=== PATIENT | female | born 1960 | race Caucasian/White ===

== ENCOUNTER → 2018-01-09 | Outpatient (CLI) | payer BC ==
[~2018-01-09] MED LIST: ASCO-182 PO; ASPI-1471 PO; HYD2 PO; IBUP-1671 PO; LOR7.5/325 PO; MED FOR REFLUX; MULT-1335 PO; OMEG500C5 PO; OMEG500C7 PO; OMEP-125 PO; OMEP40CA48 PO; PAN40 PO; PHEN-460 PO; PROM12.546 PO; RANI-324 PO; VITAMINS
--- NOTE | 2018-01-10 10:26 | RADIOLOGY IMAGING REPORT ---
FACILITY: PATIENT NAME: FAVIAN LEWIS : [id number] MR: [id number] V: [id number] EXAM DATE: [id number] ORDERING PHYSICIAN: AGUSTIN MCMAHON TECHNOLOGIST: Na Fried PROCEDURE:BILATERAL DIGITAL SCREENING MAMMOGRAM WITH CAD ASSISTED INTERPRETATION & 3D TOMOSYNTHESIS COMPARISON:Prior mammograms 10/12/16, 09/06/15, 02/19/14, 12/26/12 INDICATIONS:screening FINDINGS: Moderately heterogeneous fibroglandular tissue is seen throughout the breasts. The parenchymal pattern has remained stable allowing for difference in mammographic technique & patient positioning. There is no evidence of malignant appearing mass, malignant appearing calcifications or other secondary sign of malignancy in either breast. DIAGNOSTIC CATEGORY 2--BENIGN FINDING. RECOMMENDATIONS: ROUTINE MAMMOGRAM AND CLINICAL EVALUATION. IMPRESSION: BIRADS 2: Benign finding No significant abnormality is seen Dictated by: Nasra Tong M.D. on 01/09/2018 at 15:04 Transcribed by: JENA on 01/09/2018 at 15:54 Approved by: Nasra Tong M.D. on 01/10/2018 at 10:25 [facility]
== END ==
LOC: MAMO 02:23
PROVIDERS: ATTEND Obstetrics & Gynecology
DX: Z12.31 Encounter for screening mammogram for malignant neoplasm of breast (principal)
CPT/HCPCS: 77063; 77067

== ENCOUNTER → 2018-03-14 | Outpatient (CLI) | payer BC ==
[~2018-03-14] MED LIST changes: -RANI-324 PO; +RANI-366 PO
--- NOTE | 2018-03-14 10:57 | RADIOLOGY IMAGING REPORT ---
FACILITY: [facility] [place] PATIENT NAME: Deb Jane : 1960 MR: [id number] V: [id number] EXAM DATE: ORDERING PHYSICIAN: CELY DIEGO TECHNOLOGIST: Location: Patient: Deb Jane : 1960 Visit/Account:[id number] Date of Sevice: 03/14/2018 Exam type: KUB SINGLE VIEW ABDOMEN History: Pre-MRI screening, swallowed camera for endoscopy two months ago. Patient states she never passed through her bowel Comparison: None. Findings: The bowel gas pattern is nonspecific other than a moderate amount of fecal material in the right-side d the colon. No radiopaque foreign bodies are identified in the abdomen or pelvis. There are mild s pondylotic changes of the lumbar spine and moderate degenerative changes of the hip joints IMPRESSION: 1. No radiopaque foreign bodies identified in the abdomen or pelvis Report Dictated By: aNsra Tong MD at 03/14/2018 10:53 AM Report E-Signed By: Nasra Tong MD at 03/14/2018 10:54 AM WSN:[id number]
--- NOTE | 2018-03-14 17:19 | RADIOLOGY IMAGING REPORT ---
FACILITY: [facility] PATIENT NAME: Deb Jane : 1960 MR: [id number] V: [id number] EXAM DATE: ORDERING PHYSICIAN: CELY DIEGO TECHNOLOGIST: Location: [facility] Patient: Deb Jane : 1960 Visit/Account:[id number] Date of Sevice: 03/14/2018 MRI of the lumbar spine Indication: Low back pain and leg weakness. Comparison: None available. Technique: Sagittal T2-weighted, sagittal STIR, sagittal T1-weighted, and axial T2-weighted images of the lumbar spine were obtained. Findings: The conus terminates normally at level of L1 There is no abnormal marrow signal. There is no abnormal signal within the visualized spinal cord, The vertebral body heights are well maintained. There is severe disc space narrowing at L5-S1. There is mild disc desiccation L2-L3, L3-L4, and L4-5. Axial images extend L1-S1 Sagittal images of T11-12 and T12-L1 are unremarkable without significant central stenosis or neural foraminal narrowing. L1-L2: No significant central stenosis or neural foraminal narrowing. L2-L3: Minimal diffuse disc bulge with overall minimal central stenosis. There is mild foraminal gurinder rowing bilaterally. L3-L4: Mild diffuse disc bulge and facet arthropathy overall mild central stenosis. There is minima l foraminal narrowing bilaterally. L4-L5: Mild diffuse disc bulge and severe facet arthropathy results in overall mild to moderate centr al stenosis. There is mild to moderate bilateral neural foraminal narrowing. . L5-S1: Moderate diffuse disc bulge eccentric to left as well as moderate facet arthropathy results in overall mild central stenosis. There is mild foraminal narrowing bilaterally. Impression: 1. Multilevel degenerative changes lumbar spine as above most significant at L5-S1 there is severe di sc space narrowing as well as mild foraminal narrowing bilaterally. Report Dictated By: Mehul Barriga MD at 03/14/2018 5:11 PM Report E-Signed By: Mehul Barriga MD at 03/14/2018 5:14 PM WSN:[email or web address]
== END ==
LOC: MRI 09:30
PROVIDERS: ATTEND Physician Assistant
DX: M47.896 Other spondylosis, lumbar region (principal); M16.0 Bilateral primary osteoarthritis of hip
CPT/HCPCS: 72148; 74018

== ENCOUNTER 2018-06-20 13:45 | Emergency (ER) | payer BC ==
[~2018-06-20 13:45] MED LIST changes: +ESTR42.5 PV; +MULT-19 PO; +OMEG1CAP39 PO
[2018-06-20] MEDS ORDERED: ASPI81TA94 PO (13:54)
[2018-06-20] MEDS ORDERED: ACET-1966 PO (13:54)
[2018-06-20] MEDS ORDERED: NS(*) 0.9% 1000 ML BAG 1,000 ML IV ONE (14:12)
--- NOTE | 2018-06-20 14:12 | ER Report ---
History and Physical Time Seen By MD: 14:10 Hx. of Stated Complaint: PT REPORTS VOMITING AND HEADACHE AFTER SURGERY YESTERDAY HPI/ROS CHIEF COMPLAINT: Nausea and vomiting HISTORY OF PRESENT ILLNESS: Patient is a 58-year-old female who presents emergency department with complaint of nausea and vomiting after beginning tramadol for pain. Patient had a radioablation of lumbar nerves yesterday at [facility]. She was subsequently prescribed tramadol for pain postoperatively. Patient apparently has difficulty with narcotic pain medications and frequently has issues with vomiting. Patient states soon after taking tramadol she began vomiting intractably. She also has a mild headache at this time. She denies any fevers or chills. REVIEW OF SYSTEMS: Respiratory: No cough, no dyspnea. Cardiovascular: No chest pain, no palpitations. Gastrointestinal: Nausea with vomiting Musculoskeletal: Chronic back pain Allergies: Coded Allergies: codeine (Verified Adverse Reaction, Intermediate, NAUSEA/VOMITING, 06/20/18) tramadol (Verified Adverse Reaction, Unknown, VOMITING, 06/20/18) Uncoded Allergies: NARCOTICS (Adverse Reaction, Unknown, 06/20/18) Home Meds Active Scripts Ondansetron (ZOFRAN ODT) 4 Mg Tab.rapdis, 4 MG PO Q8H for Nausea, #20 TAB.ABIGAIL 0 Refills Prov:JEFFERY NORTH MD 06/20/18 Estrogens, Conjugated (Premarin) 0.625 Mg/Gram Cream.appl, 0.5 GM PV 2XW for 30 Days, #1 TUBE 6 Refills Prov:VIK SIM MD 04/03/18 Reported Medications Aspirin (ASPIRIN) 81 Mg Tab.chew, 81 MG PO QDAY, TAB.CHEW 06/20/18 Acetaminophen (TYLENOL) 325 Mg Tablet, 650 MG PO PRN, TAB 06/20/18 Ascorbic Acid (VITAMIN C) 500 Mg Tablet, 500 MG PO QDAY, TAB 04/03/18 Ransom-3S/Dha/Epa/Fish Oil/D3 (FISH OIL + D3 SOFTGEL) 1 Each Capsule, 1 EACH PO QDAY, CAPSULE 04/03/18 Multivits-Min/Iron/FA/Lutein (Centrum Silver Women Tablet) 1 Each Tablet, 1 PO QDAY 04/03/18 Past Medical/Surgical History History of lumbar sacral pain. Hx Smoking: No Smoking Status: Never Smoker, Unknown if Ever Smoked Exposure to Second Hand Smoke?: No Hx Substance Use Disorder: No Hx Alcohol Use: Yes Constitutional Vital Sign - Last 24 Hours 06/20/18 06/20/18 06/20/18 06/20/18 13:47 13:49 14:00 14:15 Temp 98.5 Pulse 77 68 Resp 16 B/P (MAP) 155/104 155/104 (121) 131/91 (104) Pulse Ox 97 97 93 O2 Delivery Room Air 06/20/18 14:30 Pulse 66 B/P (MAP) 118/73 (88) Pulse Ox 94 Physical Exam General Appearance: The patient is alert, has no immediate need for airway protection and no current signs of toxicity. Respiratory: Chest is non tender, lungs are clear to auscultation. Cardiac: regular rate and rhythm Gastrointestinal: Abdomen is soft and non tender, no masses, bowel sounds normal. Musculoskeletal: Neck: Neck is supple and non tender. Extremities have full range of motion and are non tender. Skin: No rashes or lesions. Medical Decision Making Data Points Result Diagram: 06/20/18 1430 06/20/18 1430 Laboratory Hematology Test 06/20/18 14:30 Red Blood Count 4.55 M/uL (4.17-5.56) Mean Corpuscular Volume 89.6 fL (80.0-96.0) Mean Corpuscular Hemoglobin 31.2 pg (26.0-33.0) Mean Corpuscular Hemoglobin Concent 34.8 g/dL (32.0-36.0) Red Cell Distribution Width 13.9 % (11.5-14.5) Mean Platelet Volume 7.6 fL (7.2-11.1) Neutrophils (%) (Auto) 80.0 % (39.4-72.5) Lymphocytes (%) (Auto) 14.1 % (17.6-49.6) Monocytes (%) (Auto) 4.1 % (4.1-12.4) Eosinophils (%) (Auto) 1.0 % (0.4-6.7) Basophils (%) (Auto) 0.8 % (0.3-1.4) Nucleated RBC Relative Count (auto) 0.2 /100WBC Neutrophils # (Auto) 5.8 K/uL (2.0-7.4) Lymphocytes # (Auto) 1.0 K/uL (1.3-3.6) Monocytes # (Auto) 0.3 K/uL (0.3-1.0) Eosinophils # (Auto) 0.1 K/uL (0.0-0.5) Basophils # (Auto) 0.1 K/uL (0.0-0.1) Nucleated RBC Absolute Count (auto) 0.01 K/uL Sodium Level 139 mmol/L (137-145) Potassium Level 4.1 mmol/L (3.5-5.0) Chloride Level 104 mmol/L (98-107) Carbon Dioxide Level 23 mmol/L (22-31) Blood Urea Nitrogen 12 mg/dl (7-18) Creatinine 0.70 mg/dl (0.52-1.04) Glomerular Filtration Rate Calc > 60.0 Random Glucose 99 mg/dl (75-110) Calcium Level 9.0 mg/dl (8.4-10.2) Total Bilirubin 0.5 mg/dl (0.2-1.3) Aspartate Amino Transf (AST/SGOT) 24 U/L (0-35) Alanine Aminotransferase (ALT/SGPT) 35 U/L (0-56) Alkaline Phosphatase 58 U/L (0-126) Total Protein 6.8 g/dl (6.3-8.2) Albumin 3.9 g/dl (3.5-5.0) Lipase 120 U/L (23-300) Chemistry Test 06/20/18 14:30 White Blood Count 7.2 k/uL (4.5-11.0) Red Blood Count 4.55 M/uL (4.17-5.56) Hemoglobin 14.2 g/dL (12.0-16.0) Hematocrit 40.8 % (34.0-47.0) Mean Corpuscular Volume 89.6 fL (80.0-96.0) Mean Corpuscular Hemoglobin 31.2 pg (26.0-33.0) Mean Corpuscular Hemoglobin Concent 34.8 g/dL (32.0-36.0) Red Cell Distribution Width 13.9 % (11.5-14.5) Platelet Count 239 K/uL (150-450) Mean Platelet Volume 7.6 fL (7.2-11.1) Neutrophils (%) (Auto) 80.0 % (39.4-72.5) Lymphocytes (%) (Auto) 14.1 % (17.6-49.6) Monocytes (%) (Auto) 4.1 % (4.1-12.4) Eosinophils (%) (Auto) 1.0 % (0.4-6.7) Basophils (%) (Auto) 0.8 % (0.3-1.4) Nucleated RBC Relative Count (auto) 0.2 /100WBC Neutrophils # (Auto) 5.8 K/uL (2.0-7.4) Lymphocytes # (Auto) 1.0 K/uL (1.3-3.6) Monocytes # (Auto) 0.3 K/uL (0.3-1.0) Eosinophils # (Auto) 0.1 K/uL (0.0-0.5) Basophils # (Auto) 0.1 K/uL (0.0-0.1) Nucleated RBC Absolute Count (auto) 0.01 K/uL Glomerular Filtration Rate Calc > 60.0 Calcium Level 9.0 mg/dl (8.4-10.2) Total Bilirubin 0.5 mg/dl (0.2-1.3) Aspartate Amino Transf (AST/SGOT) 24 U/L (0-35) Alanine Aminotransferase (ALT/SGPT) 35 U/L (0-56) Alkaline Phosphatase 58 U/L (0-126) Total Protein 6.8 g/dl (6.3-8.2) Albumin 3.9 g/dl (3.5-5.0) Lipase 120 U/L (23-300) ED Course/Re-evaluation ED Course 06/20/2018 3:09:44 pm patient feels improved after IV Zofran and fluids Decision to Disposition Date: Jun 20, 2018 Decision to Disposition Time: 15:09 Depart Departure Latest Vital Signs Vital Signs Date Time Temp Pulse Resp B/P (MAP) Pulse Ox O2 Delivery O2 Flow Rate FiO2 06/20/18 14:30 66 118/73 (88) 94 06/20/18 13:47 98.5 16 Room Air Impression: Primary Impression: Vomiting Condition: Improved Disposition: HOME OR SELF-CARE Referrals: AGUSTIN SANCHEZ MD (PCP) New Scripts Ondansetron (ZOFRAN ODT) 4 Mg Tab.rapdis 4 MG PO Q8H for Nausea, #20 TAB.ABIGAIL 0 Refills Prov: JEFFERY NORTH MD 06/20/18 Problem Qualifiers Primary Impression: Vomiting Vomiting type: unspecified Vomiting Intractability: unspecified Nausea presence: unspecified Qualified Codes: R11.10 - Vomiting, unspecified JEFFERY NORTH MD Jun 20, 2018 14:12
[2018-06-20] MEDS ORDERED: ONDANSETRON 4 MG/2 ML VIAL IVP ONE (14:15)
[2018-06-20 14:30] VITALS: BP 118/73
[2018-06-20 14:42] LABS: PLATELET COUNT, AUTOMATED 239 K/uL (150-450)
[2018-06-20] MEDS ORDERED: ONDA4TAB PO (15:39)
== END 2018-06-20 15:36 | disposition home or self-care (01) ==
LOC: ER 13:53
DX: R11.10 Vomiting, unspecified (principal); Z79.899 Other long term (current) drug therapy
CPT/HCPCS: 83690; 85025; 96361; 96374; 99283; J2405; J7030; 82040; 82247; 82310; 82374; 82435; 82565; 82947; 84075; 84132; 84155; 84295; 84450; 84460; 84520

== ENCOUNTER → 2018-09-19 | Outpatient (REF) | payer BC ==
[~2018-09-19] MED LIST changes: +ACET-1966 PO; +ASPI81TA94 PO; +ONDA4TAB PO
== END ==
LOC: ZZSENDIN 10:50
PROVIDERS: ATTEND Physician Assistant
DX: Z01.818 Encounter for other preprocedural examination (principal)
CPT/HCPCS: 81001

== ENCOUNTER → 2018-09-24 | Outpatient (CLI) | payer BC ==
--- NOTE | 2018-09-24 17:55 | RADIOLOGY IMAGING REPORT ---
FACILITY: [facility] [place] PATIENT NAME: Deb Jane : 1960 MR: [id number] V: [id number] EXAM DATE: ORDERING PHYSICIAN: USAMA CORRIGAN TECHNOLOGIST: [place] [facility] [place] Patient: Deb Jane : 1960 Visit/Account:[id number] Date of Sevice: 09/24/2018 SHOULDER MIN 2 VIEWS LEFT HISTORY: Left shoulder pain. Decreased range of motion. No comparison FINDINGS: Study demonstrates no acute bony pathology. There is a prominent protuberant osteophyte change from the inferior medial humeral head the glenohumeral joint. Generalized glenoid DJD changes. There are loose bodies within the axillary portion of the shoulder joints measuring up to 1.2 cm in size. The AC joint is well-maintained. RIBS and chest are clear. IMPRESSION: 1. Prominent degenerative changes noted within the glenohumeral joint with intra-articular loose bod ies noted in the axillary pouch. Report Dictated By: Javier Bernal MD at 09/24/2018 5:49 PM Report E-Signed By: Javier Bernal MD at 09/24/2018 5:52 PM WSN:[email or web address]
== END ==
LOC: RAD 16:12
PROVIDERS: ATTEND Family Medicine
DX: M19.012 Primary osteoarthritis, left shoulder (principal)

== ENCOUNTER 2018-10-07 02:43 | Inpatient (IN) | payer BC ==
[~2018-10-07] VITALS: Ht 175.3 cm; Wt 89.4 kg
[2018-10-07] VITALS (15 sets, daily range): BP systolic 97–131; BP diastolic 53–95
[2018-10-07] MEDS ORDERED: LIDOCAINE/SOD BICARB 8.4% SYR ID ONE (06:00)
[2018-10-07] MEDS ORDERED: ceFAZolin(*) 2GM/D5W 50ML 50 ML IVPB ONE (06:00)
[2018-10-07] MEDS ORDERED: PREGABALIN 75 MG CAPSULE PO ONE (06:00)
[2018-10-07] MEDS ORDERED: ACETAMINOPHEN 500 MG TAB PO ONE (06:00)
[2018-10-07] MEDS ORDERED: MIDAZOLAM 2 MG/2 ML VIAL IVP PRN (06:00)
[2018-10-07] MEDS ORDERED: NORMOSOL R SOLN(*) 1000 ML BAG 1,000 ML IV PRN (06:00)
[2018-10-07] MEDS ORDERED: THROMBIN (BOVINE) 20,000 UNIT VIAL ONE (06:35)
[2018-10-07] MEDS ORDERED: ROPIVACAINE 0.2% 20 ML VIAL ONE (06:35)
[2018-10-07] MEDS ORDERED: LIDOCAINE MPF 1% 5 ML VIAL ONE ×2 (06:46→07:00)
[2018-10-07] MEDS ORDERED: ONDANSETRON 4 MG/2 ML VIAL ONE ×2 (06:46→06:59)
[2018-10-07] MEDS ORDERED: DEXAMETHASONE SOD 4 MG/ML VIAL ONE ×2 (06:46)
[2018-10-07] MEDS ORDERED: ROCURONIUM BROM 10 MG/ML 10 ML ONE (06:46)
[2018-10-07] MEDS ORDERED: SUGAMMADEX SOD 200 MG/2 ML SDV ONE (06:46)
[2018-10-07] MEDS ORDERED: PROPOFOL EMUL(*) 10MG/ML 20 ML 20 ML ONE ×3 (06:46→09:52)
[2018-10-07] MEDS ORDERED: REMIFENTANIL HCL 1 MG VIAL ONE (06:47)
[2018-10-07] MEDS ORDERED: PROPOFOL(*)1000 MG/100 ML VIAL 200 ML ONE (06:47)
[2018-10-07] MEDS ORDERED: KETAMINE HCL-NS 50 MG/5 ML SYR ONE (07:02)
[2018-10-07] MEDS ORDERED: HYDROmorphone HCL 2 MG/ML SDV ONE (07:02)
--- NOTE | 2018-10-07 10:34 | RADIOLOGY IMAGING REPORT ---
FACILITY: [facility] PATIENT NAME: Deb Jane : 1960 MR: [id number] V: [id number] EXAM DATE: ORDERING PHYSICIAN: LEO CANALES TECHNOLOGIST: Location: [facility] - [place], [place] Patient: Deb Jane : 1960 Visit/Account:[id number] Date of Sevice: 10/07/2018 ADDENDUM #1 Addendum: A fourth crosstable lateral image has now been submitted demonstrating changes of posterior instrumen geraldine fusion extending from L4 to S1 with pedicle screws and vertical rods. Report Dictated By: Byron Huerta at 10/07/2018 3:03 PM Report E-Signed By: Byron Huerta at 10/07/2018 3:04 PM ORIGINAL REPORT Examination: Lumbar spine-intraoperative HISTORY: Lumbar fusion. FINDINGS: 3 intraoperative crosstable lateral images are obtained of the low lumbar spine. On the first image, a surgical instrument overlies the spinous process at L4. On the second image, mu ltiple surgical instruments overlie the dorsal soft tissues extending from L4 to S1. Similar findings seen on the final image with gauze material in place within the operative bed. There is severe degen erative disc disease at L5-S1. Compression: 1. Limited intraoperative crosstable lateral views of the low lumbar spine as above. Correlate with o perative note. Report Dictated By: Byron Huerta at 10/07/2018 10:27 AM Report E-Signed By: Byron Huerta at 10/07/2018 10:30 AM WSN:[email or web address]
[2018-10-07] MEDS ORDERED: fentaNYL CITR 100 MCG/2 ML AMP ONE ×2 (11:04→11:18)
[2018-10-07] MEDS ORDERED: FLUSH 10 ML SYR IVP PRN (11:05)
[2018-10-07] MEDS ORDERED: BENZOCAINE/MENTHOL 1 EACH LOZG PO PRN (11:05)
[2018-10-07] MEDS ORDERED: LR(*) 1000 ML BAG 1,000 ML IV PRN (11:05)
[2018-10-07] MEDS ORDERED: diphenhydrAMINE 25 MG CAP PO PRN (11:05)
[2018-10-07] MEDS ORDERED: MAGNESIUM HYDROXIDE* 30ML UDCP PO PRN (11:05)
[2018-10-07] MEDS ORDERED: BISACODYL 10 MG SUPP PR PRN (11:05)
[2018-10-07] MEDS ORDERED: ACETAMINOPHEN 500 MG TAB PO PRN (11:05)
[2018-10-07] MEDS ORDERED: APAP/HYDROCODONE 325/5 TAB PO PRN (11:05)
[2018-10-07] MEDS ORDERED: HYDROmorphone HCL 2 MG/ML SDV IVP PRN (11:05)
[2018-10-07] MEDS ORDERED: DIAZEPAM 5 MG TAB PO PRN (11:05)
--- NOTE | 2018-10-07 12:53 | OPERATIVE REPORT 1 ---
EVENT DATE: October 07, 2018 SURGEON: Sahil Stanton MD ANESTHESIOLOGIST: Aric Klein MD ANESTHESIA: General endotracheal. HAND TOOL LAPPER: MANISHA Gomez, INTRUSION ANALYST PREOPERATIVE DIAGNOSIS Lumbar spinal stenosis with spondylolisthesis. POSTOPERATIVE DIAGNOSIS Lumbar spinal stenosis with spondylolisthesis. PROCEDURE PERFORMED L4-L5 laminectomy with L4-L5, L5-S1 posterior lateral instrument and fusion. IV FLUIDS 1900 cc. ESTIMATED BLOOD LOSS 140 cc. IMPLANTS 6.5 mm x 45 mm pedicle screws from [employer] x4, 6.5 mm x 35 mm pedicle screws from [employer] x2, 5.5 mm x 70 mm connecting rods from [employer] x2 and locking caps from [employer] x6. SPECIMENS None. DRAINS None. COMPLICATIONS None. DISPOSITION Post-Anesthesia Care Unit INDICATIONS FOR SURGERY The patient is a 58-year-old female who presented with a chief complaint of radiating pain, numbness and tingling down her lower extremities. This was accompanied by decrease in walking tolerance. She had multiple treatments including physical therapy, activity modification, medications and injections, none of which gave her any prolonged relief. Secondary to temporary relief with injections of the 4-5 and 5-1 facets coupled with imaging studies consistent with severe L4-L5 stenosis in the setting of an L4-L5 spondylolisthesis, she was offered and elected to undergo L4 to S1 fusion with L4-L5 laminectomy. Prior to surgery, I explained in detail to the patient the possible risks of surgery. These risks include bleeding, infection, damage to surrounding structures, nerve root injury, spinal fluid leak, meningitis, persistent and/or worsening pain, , blindness, sexual dysfunction, autonomic nervous system dysfunction and unforeseen medical and surgical complications. An understanding that spinal surgery is more predicted at improving extremity discomfort than axial spine pain was stressed. DESCRIPTION OF PROCEDURE On the date of surgery, the patient was met in the preoperative hold area and all questions were answered. The operative site was identified and marked by myself. The patient was brought in good condition to the operating room and after succumbing to anesthesia was positioned in the prone position on a Braxton table. All bony protuberances and soft tissues were well padded in the standard fashion. Care was taken to maintain appropriate perfusion pressures during anesthesia. Preoperative antibiotics were administered according to the appropriate timing schedule. At the conclusion of the procedure, sponge and needle counts were correct x2. A final time-out was undertaken by members of the operating team to confirm correct patient, correct levels and correct surgery. The patient was prepped and draped in standard sterile orthopedic fashion and a vertical incision was made over the intended spinal levels. Sharp dissection was carried out down to the posterior elements and soft tissues were elevated off the posterior elements in a subperiosteal manner. A lateral radiograph was obtained to confirm appropriate spinal levels. Subperiosteal elevation of soft tissues was carried out down the lamina of L4-L5 and S1 bilaterally. We exposed the starting points for pedicle screws at approximately the intersection of the pars intra-articularis, the midpoint of the transverse process and the lateral aspect of the facet joint. We then packed thrombin- soaked sponges into the lateral gutters while we proceeded with the laminectomy. The spinous process of L4 was removed with a Leksell rongeur and thinned down the midline. A Vincent curette was used to undermine the superior insertion of the ligamentum flavum from the inferior aspect of the L4 lamina. The Ina elevator was used to separate any dural adhesions from surrounding bone and soft tissue prior to use of the Kerrison punch. A midline decompression was then performed using a #4 Kerrison rongeur. Once this was accomplished, the lateral recesses were decompressed bilaterally with a combination of #3 and #4 Kerrison punches. I then used a Ina elevator to ensure adequate decompression within the lateral recesses as well as the foramen of all involved nerve roots. Meticulous hemostasis was obtained using liquid Gelfoam and surgical patties. Attention was then turned to placement of pedicle screws. Pedicle screw starting points were identified at approximately the intersection of the pars intra- articular, the midpoint of the transverse process and the lateral aspect of the facet joints. A high-speed bur was used to decorticate the overlying bone and then a Lenke type probe was advanced against resistance through the pedicle. A ball-tip filler was then passed down through the pedicle palpating for any potential breaches in the pedicle itself. I palpated superiorly, inferiorly, medially, laterally as well as distally to confirm absence of any bony breaching. Pedicle screws were then placed in this fashion bilaterally at L4, L5 and S1. They were then tested with neurophysiologic monitoring and all tested well over expected thresholds. Precontoured rods were then selected and placed within the tulips. Locking caps were placed and a reduction maneuver was performed at the L4-L5 level. Locking caps were then tightened and finally tightened using torque-limiting device. We then irrigated the entire wound with copious sterile saline solution and turned our attention to the fusion portion of the procedure. High-speed bur was used to decorticate the transverse processes of the L4 and L5 bilaterally as well as the superior aspect of the sacral ala bilaterally. A combination of morselized local bone and demineralized bone matrix was then packed into the lateral gutters over the transverse processes and down to the sacral ala. Final radiograph was obtained to confirm appropriate placement of hardware and the wound was then closed in layers using interrupted sutures for the deep fascia, inverted interrupted sutures for the subcutaneous tissue and a running subcuticular skin stitch. Sponge and needle counts were correct x2. POSTOPERATIVE CARE PLAN The patient will remain in the hospital until she meets discharge criteria. She will be discharged home with instructions to follow up in two weeks for a wound check and examination. DIDI
[2018-10-07] MEDS: ONDANSETRON 4 MG/2 ML VIAL IVP PRN ×3 (13:24→23:33)
[2018-10-07] MEDS ORDERED: PANTOPRAZOLE SOD 40 MG TABEC PO PRN (14:00)
--- NOTE | 2018-10-07 14:11 | Hospitalist Consultation ---
History of Present Illness Requesting Physician Dr. Stanton Reason for Consult Medical Management Chief Complaint s/p lumbar fusion History of Present Illness She was admitted s/p lumbar fusion. It is reported the surgery went well and without complication. History Problems: (1) GERD (gastroesophageal reflux disease) Status: Chronic Home Meds Active Scripts Estrogens, Conjugated (Premarin) 0.625 Mg/Gram Cream.appl, 0.5 GM PV 2XW for 30 Days, #1 TUBE 6 Refills Prov:VIK SIM MD 04/03/18 Reported Medications Omeprazole (OMEPRAZOLE) 40 Mg Capsule.dr, 40 MG PO PRN PRN for GAS/HEARTBURN, CAP 10/02/18 Aspirin (ASPIRIN) 81 Mg Tab.chew, 81 MG PO QDAY, TAB.CHEW 06/20/18 Acetaminophen (TYLENOL) 325 Mg Tablet, 650 MG PO PRN, TAB 06/20/18 Ascorbic Acid (VITAMIN C) 500 Mg Tablet, 500 MG PO QDAY, TAB 04/03/18 Newton-3S/Dha/Epa/Fish Oil/D3 (FISH OIL + D3 SOFTGEL) 1 Each Capsule, 1 EACH PO QDAY, CAPSULE 04/03/18 Multivits-Min/Iron/FA/Lutein (Centrum Silver Women Tablet) 1 Each Tablet, 1 PO QDAY 04/03/18 Discontinued Scripts Ondansetron (ZOFRAN ODT) 4 Mg Tab.rapdis, 4 MG PO Q8H for Nausea, #20 TAB.ABIGAIL 0 Refills Prov:JEFFERY NORTH MD 06/20/18 Allergies: Coded Allergies: codeine (Verified Adverse Reaction, Intermediate, NAUSEA/VOMITING, 06/20/18) tramadol (Verified Adverse Reaction, Unknown, VOMITING, 06/20/18) Uncoded Allergies: NARCOTICS (Adverse Reaction, Unknown, 06/20/18) Patient History: Arterial disease FH: diabetes mellitus FATHER, Age:85 MOTHER, Age:85 BROTHER OR SISTER FH: heart disease FATHER, Age:85 FH: hypertension FATHER, Age:85 Hx Smoking: No Smoking Status: Never Smoker, Unknown if Ever Smoked Exposure to Second Hand Smoke?: No Caffeine Intake: Tea Caffeine/Cups Per Day: 4X/DAY Hx Alcohol Use: Yes Alcohol Used: Beer, Wine Hx Substance Use Disorder: No Social Drug Use: Never Review of Systems All Systems Reviewed/Normal: Yes, Except as Noted Exam Vital Signs Vital Signs Date Time Temp Pulse Resp B/P (MAP) Pulse Ox O2 Delivery O2 Flow Rate FiO2 10/07/18 12:48 97.7 66 16 125/77 (93) 97 Nasal Cannula 3.0 General Appearance: Alert, Awake, No Acute Distress, Afebrile Neuro: No Gross deficits Cardiovascular: Regular Rate and Rhythm Respiratory: No Respiratory Distress, Clear to Auscultation Psych: Alert & Oriented X3, Appropriate Mood & Affect Assessment and Plan Problems: (1) S/P lumbar fusion Status: Acute Assessment & Plan: Followed by Dr. Stanton. We will hold her baby aspirin s/p surgery. (2) GERD (gastroesophageal reflux disease) Status: Chronic Assessment & Plan: She is on chronic treatment with Omeprazole. She will be treated with Protonix during admission. Venous Thromboembolism Antithrombotics Is Pt On Any Antithrombotics?: JAMIE Wheeler [employer]TER [employer] Oct 07, 2018 14:11
[2018-10-07] MEDS: oxyCODONE HCL 5 MG CAP PO PRN ×2 (15:35→23:34)
[2018-10-07] MEDS: ACETAMINOPHEN(*)1000 MG/100 ML 100 ML IVPB PRN (15:35)
[2018-10-07] MEDS: ceFAZolin(*) 2GM/D5W 50ML 50 ML IVPB SCH ×2 (17:06→23:34)
[2018-10-07] MEDS: DOCUSATE SODIUM 100 MG CAP PO SCH (20:17)
[2018-10-08 03:16] VITALS: BP 96/66
[2018-10-08] MEDS: ACETAMINOPHEN(*)1000 MG/100 ML 100 ML IVPB PRN (03:22)
[2018-10-08] MEDS: oxyCODONE HCL 5 MG CAP PO PRN ×2 (06:44→16:24)
[2018-10-08 07:03] VITALS: BP 101/64
[2018-10-08] MEDS: ceFAZolin(*) 2GM/D5W 50ML 50 ML IVPB SCH (07:20)
[2018-10-08] MEDS: DOCUSATE SODIUM 100 MG CAP PO SCH ×2 (08:40→20:18)
--- NOTE | 2018-10-08 09:30 | Hospitalist Progress Note ---
Subjective Progress Notes Subjective She has no complaints this morning. She had no acute events overnight. Patient Complains of: Cardiovascular: No: Chest Pain Respiratory: No: Shortness of Breath Physical Exam Vital Signs Date Time Temp Pulse Resp B/P (MAP) Pulse Ox O2 Delivery O2 Flow Rate FiO2 10/08/18 08:42 88 10/08/18 07:03 99.4 75 16 101/64 (76) Nasal Cannula 1.0 Intake and Output 10/08/18 06:59 Intake Total 2786 ml Balance 2786 ml Intake Oral 237 ml IV Total 2549 ml # Voids 5 General Appearance: Alert, Awake, No Acute Distress, Afebrile Neuro: No Gross deficits Cardiovascular: Regular Rate and Rhythm Respiratory: No Respiratory Distress, Clear to Auscultation Psych: Alert & Oriented X3, Appropriate Mood & Affect Assessment and Plan Problems: (1) S/P lumbar fusion Status: Acute Assessment & Plan: Followed by Dr. Stanton. We will hold her baby aspirin s/p surgery. (2) GERD (gastroesophageal reflux disease) Status: Chronic Assessment & Plan: She is on chronic treatment with Omeprazole. She will be treated with Protonix during admission. Exam Sepsis Risk: No Definite Risk JAMIE SMALLS CHILDCARE WORKER Oct 08, 2018 09:30
[2018-10-08] MEDS: ONDANSETRON 4 MG/2 ML VIAL IVP PRN ×2 (10:03→16:25)
--- NOTE | 2018-10-08 11:15 | RADIOLOGY IMAGING REPORT ---
FACILITY: [facility] PATIENT NAME: Deb aJne : 1960 MR: [id number] V: [id number] EXAM DATE: ORDERING PHYSICIAN: LEO CANALES TECHNOLOGIST: Location: [facility] Patient: Deb Jane : 1960 Visit/Account:[id number] Date of Sevice: 10/08/2018 Exam type: LUMBAR SPINE 2 OR 3 VIEW History: Postop L4-S1 fusion Comparison: October 07, 2018. Findings: AP and lateral views of the lumbar spine demonstrate postsurgical changes from posterior lumbar inter body fusion L4-S1 with pedicle screws and posterior fixation rods. There is moderate to severe disc space narrowing at L5-S1. No subluxations are identified. The hardware appears to been good positio n. The posterior brace is noted. There are surgical clips the right upper quadrant abdomen IMPRESSION: 1. Postsurgical changes from posterior lumbar interbody fusion at L4-S1 as described above Report Dictated By: Nasra Tong MD at 10/08/2018 11:08 AM Report E-Signed By: Nasra Tong MD at 10/08/2018 11:12 AM WSN:[email or web address]
[2018-10-08 11:19] VITALS: BP 99/55
[2018-10-08 12:47] VITALS: Ht 175.3 cm; Wt 89.4 kg
[2018-10-08 15:50] VITALS: BP 99/52
[2018-10-08 20:04] VITALS: BP 109/67
[2018-10-08 22:49] VITALS: BP 99/65
[2018-10-09] MEDS: oxyCODONE HCL 5 MG CAP PO PRN (00:28)
[2018-10-09] MEDS: ONDANSETRON 4 MG/2 ML VIAL IVP PRN ×2 (00:28→07:34)
[2018-10-09 03:37] VITALS: BP 94/49
[2018-10-09 07:19] VITALS: BP 103/61
[2018-10-09] MEDS ORDERED: DOCU240C84 PO (07:37)
[2018-10-09] MEDS ORDERED: ONDA4TAB97 PO (07:38)
[2018-10-09] MEDS ORDERED: DIA5 PO (07:39)
[2018-10-09] MEDS ORDERED: LOR5/325 PO (07:40)
[2018-10-09] MEDS: DOCUSATE SODIUM 100 MG CAP PO SCH (09:13)
--- NOTE | 2018-10-09 09:18 | Hospitalist Progress Note ---
Subjective Progress Notes Subjective She has no complaints this morning. She had no acute events overnight. Patient Complains of: Cardiovascular: No: Chest Pain Respiratory: No: Shortness of Breath Physical Exam Vital Signs Date Time Temp Pulse Resp B/P (MAP) Pulse Ox O2 Delivery O2 Flow Rate FiO2 10/09/18 09:06 96 Nasal Cannula 2.0 10/09/18 07:19 99.8 74 16 103/61 (75) Intake and Output 10/09/18 06:58 Intake Total 480 ml Balance 480 ml Intake Oral 480 ml # Voids 6 # [place] 1 General Appearance: Alert, Awake, No Acute Distress, Afebrile Neuro: No Gross deficits Cardiovascular: Regular Rate and Rhythm Respiratory: No Respiratory Distress, Clear to Auscultation Psych: Alert & Oriented X3, Appropriate Mood & Affect Assessment and Plan Problems: (1) S/P lumbar fusion Status: Acute Assessment & Plan: Followed by Dr. Stanton. We will hold her baby aspirin s/p surgery. (2) GERD (gastroesophageal reflux disease) Status: Chronic Assessment & Plan: She is on chronic treatment with Omeprazole. She will be treated with Protonix during admission. Exam Sepsis Risk: No Definite Risk JAMIE SMALLS [employer] Oct 09, 2018 09:18
== END 2018-10-09 12:50 | disposition home or self-care (01) | DRG 460 ==
LOC: OR 02:43 → MED 12:50
PROVIDERS: ADMIT Orthopaedic Surgery; ATTEND Orthopaedic Surgery
PROC: 0SG3071 Fusion of Lumbosacral Joint with Autologous Tissue Substitute, Posterior Approach, Posterior Column, Open Approach (ICD-10-PCS; 2018-10-07)
PROC: 01NB0ZZ Release Lumbar Nerve, Open Approach (ICD-10-PCS; 2018-10-07)
PROC: 0SG0071 Fusion of Lumbar Vertebral Joint with Autologous Tissue Substitute, Posterior Approach, Posterior Column, Open Approach (ICD-10-PCS; principal; 2018-10-07 07:08)
DX: M48.061 Spinal stenosis, lumbar region without neurogenic claudication (principal); M43.16 Spondylolisthesis, lumbar region; M48.07 Spinal stenosis, lumbosacral region; M43.17 Spondylolisthesis, lumbosacral region; K21.9 Gastro-esophageal reflux disease without esophagitis; Z88.8 Allergy status to other drugs, medicaments and biological substances; Z90.49 Acquired absence of other specified parts of digestive tract; Z90.710 Acquired absence of both cervix and uterus
CPT/HCPCS: 36415; 72020; 72100; 86850; 86900; 86901; 97161; C1713; J0131; J0690; J1100; J1170; J2001; J2250; J2405; J2704; J2795; J3010; J3490